=== PATIENT | female | born 1970 | race Caucasian/White ===

== ENCOUNTER 2017-09-13 14:39 | Emergency (ER) | payer OTHER ==
[~2017-09-13 14:39] MED LIST: ALB18R INH; AZIT-18 PO; BUPR-156 PO; CEPH500T7 PO; CYCL-343 PO; HYDR-2966 PO; IBUP400T13 PO; LOR5/325 PO; LOSA100T67 PO; NAPR220C12 PO
[2017-09-13] MEDS ORDERED: ASPIRIN 81 MG CHEW PO ONE (14:50)
--- NOTE | 2017-09-13 14:59 | EKG ---
[place] [facility] [place] NAME: MATTHIEU BLAND : [id number] MR: [id number] V: [id number] EXAM DATE: ORDERING PHYSICIAN: EDER ALEXIS TECHNOLOGIST: OSMAR Veliz Reason : CP Blood Pressure : / mmHG Vent. Rate : 082 BPM Atrial Rate : 082 BPM P-R Int : 158 ms QRS Dur : 092 ms QT Int : 382 ms P-R-T Axes : 005 069 040 degrees QTc Int : 446 ms Sinus rhythm Nonspecific ST findings inferior leads - similar to previous When compared with ECG of 26-AUG-2016 10:41, No significant change was found Confirmed by JUDE GURROLA ([id number]) on 09/13/2017 3:09:32 PM Referred By: REUBEN Confirmed By:JUDE GURROLA
[2017-09-13 15:00] LABS: PLATELET COUNT, AUTOMATED 246 K/uL (150-450)
--- NOTE | 2017-09-13 15:00 | ER Report ---
History and Physical Time Seen By MD: 14:40 Hx. of Stated Complaint: pt reports chest pain that started at 0630 HPI/ROS CHIEF COMPLAINT: Chest pain HISTORY OF PRESENT ILLNESS: Patient is a 47-year-old female who presents the ED with complaint of chest pain that started this morning. She states that she 1st noticed it while she was in the car on her way to work. She describes the pain as a sharp pain of her chest and some sharp pain in her left arm as well. She initially thought the pain was related to her grabbing her dog before he ran out of the gait this morning. She thought that maybe she had pulled a muscle. She states that while she was at work she certain that she was having some intermittent shortness of breath with exertion. This was concerning to her she decided to come to the emergency room for evaluation. She states that she does have a history of diabetes with some poorly controlled blood sugars, hypertension that she currently is not taking her medication for, anxiety that she currently is not taking her medication for, smoking. She states that she has a 25 year pack year history of smoking. She denies any cough or fever. She has not noted any nausea or vomiting. She denies any diaphoresis. She denies any abdominal pain. She denies any history of heart or lung issues. She states that she does have a family history of heart disease with her father. Her father apparently had his 1st heart attack around the age of 45. She denies any history of previous blood clots. REVIEW OF SYSTEMS: Constitutional: No fever, no chills. Cardiovascular: See history of present illness. No palpitations. Respiratory: History of present illness. No cough. Gastrointestinal: No abdominal pain, no vomiting. Genitourinary: No hematuria. Musculoskeletal: No back pain. Skin: No rashes. Neurological: No headache. Allergies: Coded Allergies: No Known Drug Allergies (Unverified , 09/13/17) Home Meds Discontinued Reported Medications Cephalexin 500 Mg Tab (KEFLEX 500 MG TAB) 500 Mg Tablet, 500 MG PO Q6H, #12 TAB 10/14/16 Hydrocodone Bit/Acetaminophen (HYDROCODON-ACETAMINOPHEN 5-325) 1 Each Tablet, 1- 2 EACH PO Q4-6H Y for PAIN, #30 TAB 10/14/16 Bupropion Hcl (BUPROPION HCL SR) 150 Mg Tablet.er, 150 MG PO BID, TAB 10/12/16 Losartan Potassium (LOSARTAN POTASSIUM) 100 Mg Tablet, 100 MG PO QDAY 10/12/16 Hydrochlorothiazide (HYDROCHLOROTHIAZIDE) 25 Mg Tablet, 1 TAB PO QDAY, TAB 09/13/16 Reviewed Nurses Notes: Yes Old Medical Records Reviewed: Yes Hx Smoking: Yes (1/2 PPD X 27 YEARS ) Smoking Status: Current: Every Day Smoker Hx Substance Use Disorder: No Hx Alcohol Use: No Constitutional Vital Sign - Last 24 Hours 09/13/17 09/13/17 09/13/17 09/13/17 14:43 14:43 14:54 15:00 Temp 97.6 Pulse 86 83 Resp 16 26 B/P (MAP) 148/106 (120) 148/106 140/80 (100) Pulse Ox 95 90 O2 Delivery Room Air 09/13/17 09/13/17 09/13/17 09/13/17 15:09 15:14 15:29 15:30 Pulse 84 83 80 Resp 11 10 18 B/P (MAP) 132/81 (98) Pulse Ox 89 88 90 09/13/17 09/13/17 09/13/17 09/13/17 15:44 15:59 16:04 16:19 Pulse 80 78 80 87 Resp 19 18 18 16 Pulse Ox 89 92 90 90 09/13/17 09/13/17 09/13/17 09/13/17 16:30 16:34 16:49 16:54 Pulse 81 79 80 Resp 10 16 23 B/P (MAP) 110/63 (79) Pulse Ox 91 90 91 09/13/17 09/13/17 09/13/17 09/13/17 17:00 17:09 17:24 17:30 Pulse 83 76 Resp 35 17 B/P (MAP) 127/78 (94) 131/91 (104) Pulse Ox 93 90 09/13/17 17:39 Pulse 75 Resp 7 Pulse Ox 87 Physical Exam General Appearance: The patient is alert, has no immediate need for airway protection and no signs of toxicity. Patient appears to be in no acute distress. Eyes: Pupils equal and round no pallor or injection. ENT, Mouth: Mucous membranes are moist. Respiratory: There are no retractions, intermittent faint wheezing bilaterally. Cardiovascular: Regular rate and rhythm. Gastrointestinal: Abdomen is soft and non tender, no masses, bowel sounds normal. Skin: Warm and dry, no rashes. Musculoskeletal: Neck is supple non tender. Extremities are nontender, nonswollen and have full range of motion. DIFFERENTIAL DIAGNOSIS: After history and physical exam differential diagnosis was considered for chest pain including but not limited to myocardial ischemia, pericarditis pulmonary embolus, chest wall pain, pleural inflammation and pulmonary infectious causes. Medical Decision Making Data Points Result Diagram: 09/13/17 1449 09/13/17 1449 Laboratory Hematology Test 09/13/17 14:49 09/13/17 17:37 Red Blood Count 5.54 M/uL (4.17-5.56) Mean Corpuscular Volume 91.9 fL (80.0-96.0) Mean Corpuscular Hemoglobin 32.2 pg (26.0-33.0) Mean Corpuscular Hemoglobin Concent 35.0 g/dL (32.0-36.0) Red Cell Distribution Width 12.9 % (11.5-14.5) Mean Platelet Volume 7.7 fL (7.2-11.1) Neutrophils (%) (Auto) 55.4 % (39.4-72.5) Lymphocytes (%) (Auto) 34.8 % (17.6-49.6) Monocytes (%) (Auto) 7.2 % (4.1-12.4) Eosinophils (%) (Auto) 1.5 % (0.4-6.7) Basophils (%) (Auto) 1.1 % (0.3-1.4) Nucleated RBC Relative Count (auto) 0.1 /100WBC Neutrophils # (Auto) 4.8 K/uL (2.0-7.4) Lymphocytes # (Auto) 3.0 K/uL (1.3-3.6) Monocytes # (Auto) 0.6 K/uL (0.3-1.0) Eosinophils # (Auto) 0.1 K/uL (0.0-0.5) Basophils # (Auto) 0.1 K/uL (0.0-0.1) Nucleated RBC Absolute Count (auto) 0.01 K/uL Prothrombin Time 13.2 seconds (12.0-14.4) Prothromb Time International Ratio 1.00 Activated Partial Thromboplast Time 29 seconds (23-35) D-Dimer Quantitative (PE/DVT) 0.38 ug/ml (0-0.50) Sodium Level 140 mmol/L (137-145) Potassium Level 4.2 mmol/L (3.5-5.0) Chloride Level 105 mmol/L (98-107) Carbon Dioxide Level 21 mmol/L (22-31) Blood Urea Nitrogen 16 mg/dl (7-18) Creatinine 1.10 mg/dl (0.52-1.04) Glomerular Filtration Rate Calc 53.0 Random Glucose 100 mg/dl (75-110) Calcium Level 9.9 mg/dl (8.4-10.2) Total Bilirubin 0.9 mg/dl (0.2-1.3) Aspartate Amino Transf (AST/SGOT) 24 U/L (0-35) Alanine Aminotransferase (ALT/SGPT) 29 U/L (0-56) Alkaline Phosphatase 113 U/L (0-126) B-Type Natriuretic Peptide 21 pg/ml (0-100) Total Protein 8.0 gm/dl (6.3-8.2) Albumin 4.5 g/dl (3.5-5.0) Human Chorionic Gonadotropin, Qual Negative (NEGATIVE) Troponin I < 0.012 ng/ml Chemistry Test 09/13/17 14:49 09/13/17 17:37 White Blood Count 8.7 k/uL (4.5-11.0) Red Blood Count 5.54 M/uL (4.17-5.56) Hemoglobin 17.8 g/dL (12.0-16.0) Hematocrit 50.9 % (34.0-47.0) Mean Corpuscular Volume 91.9 fL (80.0-96.0) Mean Corpuscular Hemoglobin 32.2 pg (26.0-33.0) Mean Corpuscular Hemoglobin Concent 35.0 g/dL (32.0-36.0) Red Cell Distribution Width 12.9 % (11.5-14.5) Platelet Count 246 K/uL (150-450) Mean Platelet Volume 7.7 fL (7.2-11.1) Neutrophils (%) (Auto) 55.4 % (39.4-72.5) Lymphocytes (%) (Auto) 34.8 % (17.6-49.6) Monocytes (%) (Auto) 7.2 % (4.1-12.4) Eosinophils (%) (Auto) 1.5 % (0.4-6.7) Basophils (%) (Auto) 1.1 % (0.3-1.4) Nucleated RBC Relative Count (auto) 0.1 /100WBC Neutrophils # (Auto) 4.8 K/uL (2.0-7.4) Lymphocytes # (Auto) 3.0 K/uL (1.3-3.6) Monocytes # (Auto) 0.6 K/uL (0.3-1.0) Eosinophils # (Auto) 0.1 K/uL (0.0-0.5) Basophils # (Auto) 0.1 K/uL (0.0-0.1) Nucleated RBC Absolute Count (auto) 0.01 K/uL Prothrombin Time 13.2 seconds (12.0-14.4) Prothromb Time International Ratio 1.00 Activated Partial Thromboplast Time 29 seconds (23-35) D-Dimer Quantitative (PE/DVT) 0.38 ug/ml (0-0.50) Glomerular Filtration Rate Calc 53.0 Calcium Level 9.9 mg/dl (8.4-10.2) Total Bilirubin 0.9 mg/dl (0.2-1.3) Aspartate Amino Transf (AST/SGOT) 24 U/L (0-35) Alanine Aminotransferase (ALT/SGPT) 29 U/L (0-56) Alkaline Phosphatase 113 U/L (0-126) B-Type Natriuretic Peptide 21 pg/ml (0-100) Total Protein 8.0 gm/dl (6.3-8.2) Albumin 4.5 g/dl (3.5-5.0) Human Chorionic Gonadotropin, Qual Negative (NEGATIVE) Troponin I < 0.012 ng/ml Coagulation Test 09/13/17 14:49 Prothrombin Time 13.2 seconds Prothromb Time International Ratio 1.00 Activated Partial Thromboplast Time 29 seconds D-Dimer Quantitative (PE/DVT) 0.38 ug/ml EKG/Imaging EKG Interpretation 12 lead EKG: Rhythm: Normal sinus rhythm, rate 82 bpm [place]: normal QRS: normal ST segments: There is some slight T-wave inversion in V1. No acute ST changes identified. 12 lead EKG: Rhythm: Normal sinus rhythm, rate 73 bpm [place]: normal QRS: normal ST segments: There is some slight T-wave inversion in V1. No acute ST changes identified. Monitor Interpretation: Normal Sinus Rhythm Imaging CXR: IMPRESSION: 1. No acute cardiopulmonary process. Report Dictated By: Qasim Starks at 09/13/2017 3:16 PM Report E-Signed By: Qasim Starks at 09/13/2017 3:17 PM ED Course/Re-evaluation ED Course Will obtain labs, EKG, chest x-ray. Patient will be given aspirin 324 mg by mouth. HEART Score: 3 09/13/2017 4:02:22 pm - discussed all labs, EKG, chest x-ray with patient. Everything is essentially normal. Reexamined the chest that she does have tenderness with palpation of her anterior parasternal areas. However given her heart score of 3 will obtain a delta troponin at 3 hours. 09/13/2017 7:12:25 pm - patient did leave AMA. Her serial troponin however did come back negative. Decision to Disposition Date: Sep 13, 2017 Decision to Disposition Time: 18:15 Depart Departure Latest Vital Signs Vital Signs Date Time Temp Pulse Resp B/P (MAP) Pulse Ox O2 Delivery O2 Flow Rate FiO2 09/13/17 17:39 75 7 87 09/13/17 17:30 131/91 (104) 09/13/17 14:43 97.6 Room Air Impression: Primary Impression: Chest pain Condition: Improved Disposition: AGAINST MED ADV / DISCONT CARE New Scripts No Active Prescriptions or Reported Meds Problem Qualifiers Primary Impression: Chest pain Chest pain type: unspecified Qualified Codes: R07.9 - Chest pain, unspecified EDER ALEXIS PA-C Sep 13, 2017 15:00
--- NOTE | 2017-09-13 15:20 | RADIOLOGY IMAGING REPORT ---
FACILITY: [facility] [place] PATIENT NAME: Maureen Ricketts : 1970 MR: [id number] V: [id number] EXAM DATE: ORDERING PHYSICIAN: EDER ALEXIS TECHNOLOGIST: Location: [facility] - [place], [place] Patient: Maureen Ricketts : 1970 Visit/Account:[id number] Date of Sevice: 09/13/2017 CHEST SINGLE AP Indication: Chest pain.. Comparison: 06/26/2016. Findings: Cardiomediastinal silhouette and pulmonary vessels within normal limits. There is no focal infiltrate or lobar consolidation. No pneumothorax or pleural effusion. No nodule. Upper abdomen is unremarkable. No acute bony abnormality. IMPRESSION: 1. No acute cardiopulmonary process. Report Dictated By: Qasim Starks at 09/13/2017 3:16 PM Report E-Signed By: Qasim Starks at 09/13/2017 3:17 PM WSN:[id number]
[2017-09-13 17:30] VITALS: BP 131/91
--- NOTE | 2017-09-13 22:41 | EKG ---
FACILITY: [facility] - [place] PATIENT NAME: MATTHIEU BLAND : [id number] MR: [id number] V: [id number] EXAM DATE: ORDERING PHYSICIAN: EDER ALEXIS TECHNOLOGIST: OSMAR Veliz Reason : REPEAT Blood Pressure : / mmHG Vent. Rate : 073 BPM Atrial Rate : 073 BPM P-R Int : 154 ms QRS Dur : 090 ms QT Int : 404 ms P-R-T Axes : -04 065 052 degrees QTc Int : 445 ms Sinus rhythm Nonspecific ST findings inferolateral leads Similar to previous Confirmed by JUDE GURROLA ([id number]) on 09/14/2017 6:11:21 AM Referred By: REUBEN Confirmed By:JUDE GURROLA
== END 2017-09-13 17:55 | disposition left against medical advice (07) ==
LOC: ER 14:44
DX: R07.89 Other chest pain (principal)
CPT/HCPCS: 36415; 71045; 82040; 82247; 82310; 82374; 82435; 82565; 82947; 83880; 84075; 84132; 84155; 84295; 84450; 84460; 84484; 84520; 84703; 85025; 85379; 85610; 85730; 93005; 99284